=== PATIENT | female | born 1940 | race Caucasian/White ===

== ENCOUNTER 2024-07-11 17:36 | Inpatient (IN) | payer MEDICARE, BC ==
[~2024-07-11] VITALS: Ht 154.9 cm; Wt 57.6 kg
[2024-07-11] MEDS ORDERED: IBUPROFEN 600 MG TABLET ONE (17:57)
[2024-07-11] MEDS: IBUPROFEN 600 MG TABLET PO ONE (17:59)
[2024-07-11] MEDS ORDERED: oxyCODONE/APAP (5/325 MG) 1 UDTAB TABLET ONE (19:13)
[2024-07-11] MEDS: oxyCODONE/APAP (5/325 MG) 1 UDTAB TABLET PO ONE (19:16)
[2024-07-11 20:06] LABS: BASOPHILS # (AUTO) 0.1 K/uL (0.0-0.2); BASOPHILS % (AUTO) 0.5 % (0.0-2.0); EOSINOPHILS % (AUTO) 0.1 % (0.0-6.0); HEMATOCRIT 37 % (33-45); HEMOGLOBIN 12.9 g/dL (11.5-14.8); LYMPHOCYTES # (AUTO) 0.6 K/uL (0.8-4.8); LYMPHOCYTES % (AUTO) 5.2 % (20.0-44.0); MEAN CORPUSCULAR HEMOGLOBIN 32 PG (26.0-33.0); MEAN CORPUSCULAR HGB CONC 35 g/dl (31.0-36.0); MEAN CORPUSCULAR VOLUME 92 fL (82-100); MONOCYTES # (AUTO) 0.9 K/uL (0.1-1.30); NEUTROPHILS # (AUTO) 10.9 K/uL (1.8-8.9); NEUTROPHILS % (AUTO) 87.2 % (43.0-81.0); PLATELET COUNT (AUTO) 213 K/uL (150-450); RED BLOOD CELL COUNT(AUTO) 4.07 MIL/uL (4.0-5.2); WHITE BLOOD COUNT (AUTO) 12.5 K/uL (4.3-11.0)
[2024-07-11] MEDS ORDERED: LIDOCAINE 1% INJ 50 ML MDV IJ ONE (20:10)
[2024-07-11] MEDS ORDERED: MORPHINE SULFATE INJ 2 MG/ML DISP.SYRIN ONE (20:18)
[2024-07-11 20:19] LABS: INR 1.03 (0.91-1.10); PARTIAL THROMBOPLASTIN TIME 26.7 SEC (24.3-34.3); PROTHROMBIN TIME 10.9 SECS (9.2-11.1)
[2024-07-11 20:23] LABS: ALBUMIN 3.9 g/dL (3.4-5.0); BILIRUBIN,DIRECT 0.1 mg/dL (0.0-0.2); BILIRUBIN,TOTAL 0.4 mg/dL (0.2-1.0); POTASSIUM 4.1 mmol/L (3.5-5.1); TOTAL PROTEIN, SERUM 6.9 g/dL (6.4-8.2)
[2024-07-11] MEDS: MORPHINE SULFATE INJ 2 MG/ML DISP.SYRIN IV ONE (20:25)
[2024-07-11 21:30] VITALS: BP 148/76; TEMP 98.2; O2SAT 97
[2024-07-11] MEDS ORDERED: Z GUARD REMEDY 4 OZ OINT TP PRN (21:30)
[2024-07-11] MEDS ORDERED: MAG HYDROX/AL HYDROX/SIMETH 30 ML UDC PO PRN (21:30)
[2024-07-11] MEDS ORDERED: ZOLPIDEM TARTRATE 5 MG TABLET PO PRN (21:30)
[2024-07-11] MEDS ORDERED: MAGNESIUM HYDROXIDE 30 ML UDC PO PRN (21:30)
[2024-07-11] MEDS ORDERED: HYDR-4076 PO (22:38)
[2024-07-11] MEDS ORDERED: ISOS30TA86 PO (22:38)
[2024-07-11] MEDS ORDERED: LEVO50TA8 PO (22:38)
[2024-07-11] MEDS ORDERED: ATOR20TA PO (22:38)
[2024-07-11] MEDS ORDERED: DILT-4 PO (22:38)
[2024-07-11] MEDS: ONDANSETRON HCL/PF 4 MG/2 ML VIAL IVP PRN (23:19)
[2024-07-11] MEDS: DILTIAZEM HCL CD 240 MG PO SCH (23:21)
[2024-07-11] MEDS: hydrALAZINE HCL 25 MG TABLET PO SCH (23:21)
[2024-07-11] MEDS: ATORVASTATIN 10 MG TABLET PO SCH (23:33)
[2024-07-12] MEDS: IV D5/0.45 NACL 1,000 ML IV PRN (04:41)
[2024-07-12 06:45] LABS: BASOPHILS % (AUTO) 0.3 % (0.0-2.0); EOSINOPHILS % (AUTO) 0.5 % (0.0-6.0); HEMATOCRIT 35 % (33-45); LYMPHOCYTES # (AUTO) 0.9 K/uL (0.8-4.8); LYMPHOCYTES % (AUTO) 9.8 % (20.0-44.0); MEAN CORPUSCULAR HEMOGLOBIN 31 PG (26.0-33.0); MEAN CORPUSCULAR HGB CONC 34 g/dl (31.0-36.0); MEAN CORPUSCULAR VOLUME 91 fL (82-100); MONOCYTES # (AUTO) 0.9 K/uL (0.1-1.30); MONOCYTES % (AUTO) 10.5 % (2.0-12.0); NEUTROPHILS % (AUTO) 78.9 % (43.0-81.0); PLATELET COUNT (AUTO) 207 K/uL (150-450); RED BLOOD CELL COUNT(AUTO) 3.85 MIL/uL (4.0-5.2); RED CELL DISTRIBUTION WIDTH 14.1 % (11.5-15.0); WHITE BLOOD COUNT (AUTO) 8.9 K/uL (4.3-11.0)
[2024-07-12 07:05] LABS: CALCIUM, SERUM 8.5 mg/dL (8.5-10.1); CREATININE 0.6 mg/dL (0.6-1.3); MAGNESIUM 2.1 mg/dL (1.8-2.4); PHOSPHORUS 4.3 mg/dL (2.5-4.9); POTASSIUM 4.3 mmol/L (3.5-5.1)
[2024-07-12 08:00] VITALS: BP 124/66; TEMP 98.1; O2SAT 99
[2024-07-12] MEDS: PANTOPRAZOLE 40 MG VIAL IV SCH (08:17)
[2024-07-12] MEDS ORDERED: hydrALAZINE HCL 25 MG TABLET PO SCH (09:00)
[2024-07-12] MEDS ORDERED: Medication Not On Formulary EA (Atorvastatin Calcium (Lipitor) 1 TAB) PO SCH (09:00)
[2024-07-12] MEDS: LEVOTHYROXINE SODIUM 50 MCG TABLET PO SCH (11:44)
[2024-07-12] MEDS: ISOSORBIDE MONONITRATE (30MG) 30 MG TAB.SR.24H PO SCH (11:45)
[2024-07-12] MEDS: ACETAMINOPHEN 325 MG TABLET PO PRN (12:28)
[2024-07-12] MEDS: BISACODYL SUPP (10 MG) 10 MG/SUPP.RECT SUPP.RECT RC PRN (12:33)
[2024-07-12] MEDS ORDERED: MORPHINE SULFATE INJ 2 MG/ML DISP.SYRIN IV PRN (14:00)
[2024-07-12] MEDS: HYDROCODONE/APAP 5/325MG TABLET PO PRN (14:49)
[2024-07-12 16:00] VITALS: BP 124/53; TEMP 98.1; O2SAT 95
[2024-07-12 18:13] LABS: APPEARANCE,URINE CLEAR (CLEAR); BILIRUBIN,URINE NEGATIVE (NEGATIVE); BLOOD, URINE NEGATIVE Ery/uL (NEGATIVE); COLOR,URINE YELLOW (YELLOW); KETONES,URINE NEGATIVE (NEGATIVE); LEUKOCYTE ESTERASE ,URINE NEGATIVE (NEGATIVE); NITRITE, URINE NEGATIVE (NEGATIVE); PROTEIN,URINE NEGATIVE (NEGATIVE); UGLUCOSE NEGATIVE (NEGATIVE); UROBILINOGEN,URINE 0.2 EU/dL (0.2)
[2024-07-12 20:00] VITALS: BP 130/65; TEMP 98.1; O2SAT 96
[2024-07-12] MEDS ORDERED: DILTIAZEM HCL CD 240 MG PO SCH (22:00)
[2024-07-13] MEDS ORDERED: BUPIVACAINE 0.5 % PF 150 MG/30 ML VIAL ONE (06:07)
[2024-07-13] MEDS ORDERED: ANESTHESIA TRAY IN PYXIS 1 EA TRAY MC ONE (06:07)
[2024-07-13] MEDS ORDERED: VANCOMYCIN 1 GM VIAL ONE (06:07)
[2024-07-13] MEDS ORDERED: FENTANYL PF 250MCG/5ML AMPUL ONE (07:33)
[2024-07-13] MEDS ORDERED: ROCURONIUM BROMIDE 50 MG/5 ML ONE (07:34)
[2024-07-13] MEDS ORDERED: SEVOFLURANE 250 ML BOTTLE IH ONE (08:07)
[2024-07-13] MEDS ORDERED: LABETALOL HCL IV 100MG VIAL ONE (08:07)
[2024-07-13] MEDS ORDERED: FENTANYL PF 100MCG/2ML AMPUL ONE (10:10)
[2024-07-13] MEDS: MORPHINE SULFATE INJ 4 MG/ML DISP.SYRIN IV PRN (11:12)
[2024-07-13 12:00] VITALS: BP 130/61; TEMP 97.9; O2SAT 97
[2024-07-13] MEDS ORDERED: IV D5/0.45 NACL 1,000 ML IV PRN (12:00)
[2024-07-13] MEDS: ANCEF 1 GM/50 ML D5W IV SCH (14:01)
[2024-07-13 16:00] VITALS: BP 115/61; TEMP 97.5; O2SAT 96
[2024-07-13 20:00] VITALS: BP 136/61; TEMP 99; O2SAT 95
[2024-07-13 20:19] VITALS: BP 136/61; TEMP 99; O2SAT 95
[2024-07-14 06:38] LABS: BASOPHILS % (AUTO) 0.4 % (0.0-2.0); EOSINOPHILS # (AUTO) 0.1 K/uL (0.0-0.7); EOSINOPHILS % (AUTO) 1.1 % (0.0-6.0); HEMATOCRIT 31 % (33-45); HEMOGLOBIN 10.6 g/dL (11.5-14.8); MEAN CORPUSCULAR HEMOGLOBIN 32 PG (26.0-33.0); MEAN CORPUSCULAR HGB CONC 34 g/dl (31.0-36.0); MEAN CORPUSCULAR VOLUME 92 fL (82-100); MONOCYTES # (AUTO) 1.4 K/uL (0.1-1.30); MONOCYTES % (AUTO) 14.3 % (2.0-12.0); NEUTROPHILS # (AUTO) 7.3 K/uL (1.8-8.9); NEUTROPHILS % (AUTO) 74.2 % (43.0-81.0); PLATELET COUNT (AUTO) 184 K/uL (150-450); RED BLOOD CELL COUNT(AUTO) 3.35 MIL/uL (4.0-5.2); RED CELL DISTRIBUTION WIDTH 13.9 % (11.5-15.0); WHITE BLOOD COUNT (AUTO) 9.8 K/uL (4.3-11.0)
[2024-07-14 06:46] LABS: CALCIUM, SERUM 8.1 mg/dL (8.5-10.1); CREATININE 0.6 mg/dL (0.6-1.3); POTASSIUM 3.4 mmol/L (3.5-5.1)
[2024-07-14 08:45] VITALS: BP 129/48; TEMP 98.4; O2SAT 96
[2024-07-14] MEDS: HYDROCODONE/APAP 10/325MG TABLET PO PRN (09:09)
[2024-07-14] MEDS: PANTOPRAZOLE 40 MG TABLET.DR PO SCH (09:10)
[2024-07-14] MEDS: POTASSIUM CHLORIDE 20 MEQ TAB.PRT.SR PO ONE (09:56)
[2024-07-14] MEDS: ENOXAPARIN SODIUM 40 MG/0.4 ML DISP.SYRIN SQ SCH (10:20)
[2024-07-14 16:06] VITALS: BP 107/50; TEMP 98.8; O2SAT 100
[2024-07-14 20:00] VITALS: BP 110/48; TEMP 99.3; O2SAT 95
[2024-07-14 23:19] VITALS: TEMP 98.6
[2024-07-15 09:59] VITALS: BP 129/56
== END 2024-07-15 16:45 | disposition home health service (06) | DRG 494 ==
LOC: ER 17:39 → MED 20:35
PROVIDERS: ADMIT Student in an Organized Health Care Education/Training Program; ATTEND Internal Medicine
PROC: 0QSJXZZ Reposition Right Fibula, External Approach (ICD-10-PCS; 2024-07-11)
PROC: 0QSGXZZ Reposition Right Tibia, External Approach (ICD-10-PCS; 2024-07-11)
PROC: 0QSG04Z Reposition Right Tibia with Internal Fixation Device, Open Approach (ICD-10-PCS; 2024-07-13)
PROC: 0QSJ04Z Reposition Right Fibula with Internal Fixation Device, Open Approach (ICD-10-PCS; principal; 2024-07-13 07:30)
DX: S82.851A Displaced trimalleolar fracture of right lower leg, initial encounter for closed fracture (principal); W01.0XXA Fall on same level from slipping, tripping and stumbling without subsequent striking against object, initial encounter; E86.0 Dehydration; I10 Essential (primary) hypertension; D72.829 Elevated white blood cell count, unspecified; Z95.0 Presence of cardiac pacemaker; R79.89 Other specified abnormal findings of blood chemistry; W19.XXXA Unspecified fall, initial encounter; Y93.89 Activity, other specified; Y92.007 Garden or yard of unspecified non-institutional (private) residence as the place of occurrence of the external cause
CPT/HCPCS: 36415; 71045-TC; 73600-TC; 73610-TC; 73620-TC; 80048-TC; 80076-TC; 83735-TC; 84100-TC; 85025-TC; 85730-TC; 86850-TC; 93307-TC; 97110-TC; 97116-TC; 97530-TC; 97535-TC; A4217; A6402; C1713; G0378; J0461; J0690; J1650; J1885; J2270; J2405; J2470; J2704; J3010; J3370; J3490; J7060